=== PATIENT | male | born 1950 | race Caucasian/White ===

== ENCOUNTER 2018-02-06 21:35 | Observation (INO) | payer MEDICARE, OTHER ==
[2018-02-06 21:54] LABS: ADD MAN DIFF? NO
[2018-02-06] MEDS: ONDANSETRON 4 MG INJ IV (21:55)
[2018-02-06] MEDS: HYDROmorphONE 1 MG/ML SYG IV (21:56)
[2018-02-06] MEDS: SOD CHLORIDE 0.9% 500 ML IV (21:56)
[2018-02-06 21:59] LABS: WHITE BLOOD COUNT 10.5 10^3/ul (4.8-10.8)
[2018-02-06 21:59] LABS: BASOPHILS % 0.2 % (0.0-2.0); EOSINOPHILS % 0.3 % (0.0-7.0); HEMATOCRIT 52.1 % (42.0-52.0); HEMOGLOBIN 17.9 g/dl (14.0-18.0); LYMPHOCYTES # 3.2 10^3/ul (0.8-2.9); LYMPHOCYTES % 30.2 % (15.0-51.0); MEAN CORPUSCULAR HEMOGLOBIN 30.1 pg (29.0-33.0); MEAN CORPUSCULAR HGB CONC 34.4 g/dl (32.0-37.0); MEAN CORPUSCULAR VOLUME 87.6 fl (82.0-101.0); MEAN PLATELET VOLUME 10.6 fl (7.4-10.4); MONOCYTE # 1.2 10^3/ul (0.3-0.9); MONOCYTES % 11.1 % (0.0-11.0); NEUTROPHIL # 6.1 10^3/ul (1.6-7.5); NEUTROPHILS % 57.7 % (39.0-77.0); PLATELET COUNT 259 10^3/UL (140-415); RED BLOOD COUNT 5.95 10^6/ul (4.70-6.10); RED CELL DISTRIBUTION WIDTH 11.7 % (11.5-14.5)
[2018-02-06 22:16] LABS: ALANINE AMINOTRANSFERASE 24 IU/L (13-69); ALBUMIN 4.3 g/dl (3.3-4.9); ALBUMIN/GLOBULIN RATIO 1.16; ALKALINE PHOSPHATASE 59 IU/L (42-121); ANION GAP 14 (5-13); ASPARTATE AMINO TRANSFERASE 30 IU/L (15-46); BILIRUBIN,INDIRECT 0.7 mg/dl (0-1.1); BILIRUBIN,TOTAL 0.7 mg/dl (0.2-1.3); BLOOD UREA NITROGEN 26 mg/dl (7-20); CALCIUM 10.6 mg/dl (8.4-10.2); CARBON DIOXIDE 28 mmol/L (21-31); CHLORIDE 99 mmol/L (97-110); CREATININE 1.51 mg/dl (0.61-1.24); Estimated GFR 46 mL/min (>60); GLUCOSE 176 mg/dl (70-220); LIPASE 118 U/L (23-300); POTASSIUM 4.1 mmol/L (3.5-5.1); SODIUM 141 mmol/L (135-144)
[2018-02-06 22:18] LABS: INR 0.86; PROTIME 11.8 Sec (11.9-14.9); PT RATIO 0.9
[2018-02-06 22:19] LABS: PARTIAL THROMBOPLASTIN TIME 24.7 Sec (23.0-35.0)
[2018-02-07] MEDS: HYDROmorphONE 0.5 MG/0.5 ML SYG IV (00:34)
[2018-02-07] MEDS ORDERED: ACETAMINOPHEN 325 MG TAB PO (05:00)
[2018-02-07] MEDS ORDERED: NACL 0.9% 3 ML SYG IV (05:00)
[2018-02-07] MEDS ORDERED: HYDROCODONE/APAP (5/325) TAB PO (05:00)
[2018-02-07] MEDS ORDERED: ONDANSETRON 4 MG INJ IV (05:00)
[2018-02-07 07:06] LABS: ADD MAN DIFF? NO
[2018-02-07 07:13] LABS: WHITE BLOOD COUNT 8.5 10^3/ul (4.8-10.8)
[2018-02-07 07:13] LABS: BASOPHILS % 0.1 % (0.0-2.0); EOSINOPHILS % 0.4 % (0.0-7.0); HEMATOCRIT 44.6 % (42.0-52.0); HEMOGLOBIN 15.3 g/dl (14.0-18.0); LYMPHOCYTES # 2.8 10^3/ul (0.8-2.9); LYMPHOCYTES % 33.1 % (15.0-51.0); MEAN CORPUSCULAR HEMOGLOBIN 30.7 pg (29.0-33.0); MEAN CORPUSCULAR HGB CONC 34.3 g/dl (32.0-37.0); MEAN CORPUSCULAR VOLUME 89.6 fl (82.0-101.0); MEAN PLATELET VOLUME 11.4 fl (7.4-10.4); MONOCYTE # 0.9 10^3/ul (0.3-0.9); MONOCYTES % 10.9 % (0.0-11.0); NEUTROPHIL # 4.7 10^3/ul (1.6-7.5); NEUTROPHILS % 54.9 % (39.0-77.0); PLATELET COUNT 196 10^3/UL (140-415); RED BLOOD COUNT 4.98 10^6/ul (4.70-6.10)
[2018-02-07 07:40] LABS: ANION GAP 9 (5-13); BLOOD UREA NITROGEN 28 mg/dl (7-20); CALCIUM 9.3 mg/dl (8.4-10.2); CARBON DIOXIDE 30 mmol/L (21-31); CHLORIDE 101 mmol/L (97-110); CREATININE 1.37 mg/dl (0.61-1.24); Estimated GFR 52 mL/min (>60); GLUCOSE 158 mg/dl (70-220); SODIUM 140 mmol/L (135-144)
[2018-02-07 08:06] LABS: POTASSIUM 4.6 mmol/L (3.5-5.1)
[2018-02-07] MEDS: HYDROCODONE/APAP (5/325) TAB PO ×3 (08:46→21:22)
[2018-02-07 11:16] LABS: HEMOGLOBIN A1C 6.9 % (0-5.9)
[2018-02-07] MEDS ORDERED: DEXTROSE 50% 50 ML SYRINGE IV ×2 (11:30)
[2018-02-07] MEDS ORDERED: GLUCOSE GEL 15 GRAM TUBE PO ×2 (11:30)
[2018-02-07] MEDS ORDERED: GLUCAGON 1 MG INJ IM (11:30)
[2018-02-07] MEDS ORDERED: GLUCOSE GEL 15 GRAM TUBE BUCCAL (11:30)
[2018-02-07] MEDS ORDERED: BENAZEPRIL 40 MG TAB PO (11:30)
[2018-02-07] MEDS: METOPROLOL (XL) 50 MG TAB PO (11:44)
[2018-02-07 12:15] LABS: ADD UMIC YES; UR ASCORBIC ACID NEGATIVE (NEGATIVE); UR BILIRUBIN (Dip) NEGATIVE (NEGATIVE); UR BLOOD (Dip) 1+ mg/dL (NEGATIVE); UR CLARITY CLEAR (CLEAR); UR COLOR STRAW (YELLOW); UR GLUCOSE (Dip) 2+ mg/dL (NEGATIVE); UR KETONES (Dip) NEGATIVE (NEGATIVE); UR LEUKOCYTE ESTERASE (Dip) NEGATIVE Leu/ul (NEGATIVE); UR NITRITE (Dip) NEGATIVE (NEGATIVE); UR RBC 0 /HPF (0-5); UR TOTAL PROTEIN (Dip) NEGATIVE (NEGATIVE); UR UROBILINOGEN (Dip) NEGATIVE (NEGATIVE); UR WBC 1 /HPF (0-5)
[2018-02-07] MEDS: BACLOFEN 10 MG TAB PO ×2 (12:28→20:54)
[2018-02-07] MEDS: INSULIN ASPART [NOVOLOG] 3 ML PEN SC ×3 (12:32→20:56)
[2018-02-07] MEDS: predniSONE 20 MG TAB PO (12:37)
[2018-02-07] MEDS: SOD CHLORIDE 0.9% 1,000 ML IV (12:37)
[2018-02-07] MEDS: ATORVASTATIN 20 MG TAB PO (20:54)
[2018-02-08] MEDS: SOD CHLORIDE 0.9% 1,000 ML IV (05:07)
[2018-02-08 06:59] LABS: ADD MAN DIFF? NO
[2018-02-08 07:03] LABS: BASOPHILS % 0.1 % (0.0-2.0); HEMATOCRIT 43.1 % (42.0-52.0); LYMPHOCYTES # 1.5 10^3/ul (0.8-2.9); LYMPHOCYTES % 14.9 % (15.0-51.0); MEAN CORPUSCULAR HEMOGLOBIN 30.5 pg (29.0-33.0); MEAN CORPUSCULAR HGB CONC 34.8 g/dl (32.0-37.0); MEAN CORPUSCULAR VOLUME 87.6 fl (82.0-101.0); MEAN PLATELET VOLUME 11.2 fl (7.4-10.4); MONOCYTE # 0.8 10^3/ul (0.3-0.9); MONOCYTES % 7.7 % (0.0-11.0); NEUTROPHIL # 7.7 10^3/ul (1.6-7.5); NEUTROPHILS % 76.6 % (39.0-77.0); PLATELET COUNT 192 10^3/UL (140-415); RED BLOOD COUNT 4.92 10^6/ul (4.70-6.10); RED CELL DISTRIBUTION WIDTH 11.8 % (11.5-14.5)
[2018-02-08 07:03] LABS: WHITE BLOOD COUNT 10.1 10^3/ul (4.8-10.8)
[2018-02-08 07:24] LABS: ALANINE AMINOTRANSFERASE 23 IU/L (13-69); ALBUMIN/GLOBULIN RATIO 1.33; ALKALINE PHOSPHATASE 37 IU/L (42-121); ANION GAP 9 (5-13); ASPARTATE AMINO TRANSFERASE 19 IU/L (15-46); BLOOD UREA NITROGEN 20 mg/dl (7-20); CALCIUM 9.5 mg/dl (8.4-10.2); CARBON DIOXIDE 27 mmol/L (21-31); CHLORIDE 101 mmol/L (97-110); CREATININE 0.93 mg/dl (0.61-1.24); Estimated GFR > 60 mL/min (>60); GLUCOSE 158 mg/dl (70-220); MAGNESIUM 1.6 mg/dl (1.7-2.5); POTASSIUM 4.5 mmol/L (3.5-5.1); SODIUM 137 mmol/L (135-144)
[2018-02-08] MEDS: INSULIN ASPART [NOVOLOG] 3 ML PEN SC ×4 (08:00→20:44)
[2018-02-08 08:02] LABS: BILIRUBIN,INDIRECT 0.7 mg/dl (0-1.1); BILIRUBIN,TOTAL 0.7 mg/dl (0.2-1.3)
[2018-02-08] MEDS: BACLOFEN 10 MG TAB PO ×3 (08:31→20:35)
[2018-02-08] MEDS: predniSONE 20 MG TAB PO (08:31)
[2018-02-08] MEDS: METOPROLOL (XL) 50 MG TAB PO (08:32)
[2018-02-08] MEDS: ASPIRIN 81 MG TAB PO (08:32)
[2018-02-08] MEDS: HYDROCODONE/APAP (5/325) TAB PO (08:44)
[2018-02-08] MEDS: MAGNESIUM OXIDE 400 MG TAB PO (09:03)
[2018-02-08] MEDS ORDERED: traMADol 50 MG TAB PO (12:00)
[2018-02-08] MEDS ORDERED: OXYCODONE/ACETAMINOPHEN (5/325) TAB PO (12:30)
[2018-02-08] MEDS: OXYCODONE/ACETAMINOPHEN (10/325) TAB PO (12:43)
[2018-02-08] MEDS ORDERED: HYDROCODONE/APAP (5/325) TAB PO (13:00)
[2018-02-08] MEDS: GABAPENTIN 300 MG CAP PO ×2 (15:20→20:36)
[2018-02-08] MEDS: ATORVASTATIN 20 MG TAB PO (20:36)
[2018-02-09] MEDS: BACLOFEN 10 MG TAB PO ×2 (08:40→13:15)
[2018-02-09] MEDS: ASPIRIN 81 MG TAB PO (08:40)
[2018-02-09] MEDS: INSULIN ASPART [NOVOLOG] 3 ML PEN SC ×3 (08:40→17:43)
[2018-02-09] MEDS: predniSONE 20 MG TAB PO (08:41)
[2018-02-09] MEDS: GABAPENTIN 300 MG CAP PO ×2 (08:41→13:15)
[2018-02-09] MEDS: METOPROLOL (XL) 50 MG TAB PO (08:42)
[2018-02-09] MEDS: OXYCODONE/ACETAMINOPHEN (10/325) TAB PO (08:50)
[2018-02-09] MEDS ORDERED: HYDROCODONE/APAP (10/325) TAB PO (11:00)
== END 2018-02-09 18:10 | disposition home health service (06) ==
LOC: 2NE 02-08 23:19 → E/R 21:35
DX: R10.9 Unspecified abdominal pain (principal); M51.26 Other intervertebral disc displacement, lumbar region; I25.10 Atherosclerotic heart disease of native coronary artery without angina pectoris; Z95.1 Presence of aortocoronary bypass graft; I10 Essential (primary) hypertension; E78.5 Hyperlipidemia, unspecified; E11.9 Type 2 diabetes mellitus without complications
CPT/HCPCS: 36415; 71045; 72131; 74018; 74176; 80048; 80053; 81001; 82962; 83036; 83690; 83735; 84100; 85025; 85610; 85730; 87086; 96374; 96375; 97116; 97161; 97530; 99285-25; G0378